=== PATIENT | male | born 1935 | race Caucasian/White ===

== ENCOUNTER → 2016-12-04 | Outpatient (CLI) | payer MEDICARE ==
[~2016-12-04] MED LIST: AMLO10TA PO; ASPI325T PO; CARV3.12 PO; COLA100C2 PO; LISI10TA4 PO; MULTIVIT PO; NITR0.4S SL; OMEP20TA7 PO; PRAV20TA2 PO; TRAM50TA2 PO; VITA500T PO
== END ==
LOC: M LAB 15:38
PROVIDERS: ATTEND Nurse Practitioner Adult Health
DX: R35.1 Nocturia (principal)

== ENCOUNTER → 2016-12-04 | Outpatient (CLI) | payer MEDICARE ==
[2016-12-04 18:01] LABS: ALBUMIN 3.6 GM/DL (3.2-5.2); ALKALINE PHOSPHATASE 73 U/L (45-117); ALT/SGPT 27 U/L (12-78); AST/SGOT 23 U/L (15-37); BILIRUBIN,DIRECT < 0.1 MG/DL (0.0-0.2); BILIRUBIN,TOTAL 0.3 MG/DL (0.2-1.0); CHOLESTEROL LEVEL 166 MG/DL (<200); TOTAL PROTEIN 6.6 GM/DL (6.4-8.2); TRIGLYCERIDES LEVEL 188 MG/DL (<150)
== END ==
LOC: M LAB 15:34
PROVIDERS: ATTEND Physician Assistant
DX: E78.00 Pure hypercholesterolemia, unspecified (principal); R35.1 Nocturia

== ENCOUNTER → 2016-12-17 | Outpatient (CLI) | payer MEDICARE ==
--- NOTE | 2016-12-17 08:16 | REP ---
Clinical: Right upper quadrant abdominal pain. Technique: Nice scale ultrasound using curved array transducer. Findings: The liver and pancreas are normal in contour, size, and echogenicity without focal hepatic or pancreatic lesions identified. The gallbladder demonstrates multiple small mobile gallstones without wall thickening or pericholecystic fluid. No biliary ductal dilatation is appreciated, and the common bile duct measures 5.5 mm diameter. The right kidney is normal in reniform shape without hydronephrosis. No ascites. Visualized portions of the abdominal aorta normal. Impression: 1. Cholelithiasis. Signed by Karlo Vieyra MD 12/17/2016 08:07 A
== END ==
LOC: M RAD 06:45
PROVIDERS: ATTEND Physician Assistant
DX: R10.9 Unspecified abdominal pain (principal)

== ENCOUNTER → 2017-06-15 | Outpatient (REF) | payer MEDICARE | LOC: M LAB REF 16:35 | PROVIDERS: ATTEND Physician Assistant | DX: N39.0 Urinary tract infection, site not specified (principal) ==

== ENCOUNTER → 2017-06-26 | Outpatient (CLI) | payer MEDICARE | LOC: M LAB 18:09 | PROVIDERS: ATTEND Physician Assistant | DX: R30.0 Dysuria (principal) | CPT/HCPCS: 36415; 81001; 87086; G0103 ==

== ENCOUNTER → 2017-07-17 | Outpatient (REF) | payer MEDICARE ==
[2017-07-17 13:50] LABS: FERRITIN 175 NG/ML (26-388); FOLATE > 24.0 NG/ML; PERCENT SATURATION 23.1 % (19.7-50.0); TOTAL IRON BINDING CAPACITY 312 UG/DL (250-450); VITAMIN B12 LEVEL 1111 PG/ML
== END ==
LOC: M LAB REF 13:03
PROVIDERS: ATTEND Internal Medicine Nephrology
DX: D64.9 Anemia, unspecified (principal)

== ENCOUNTER → 2017-09-02 | Outpatient (REF) | payer MEDICARE ==
[2017-09-02 14:09] LABS: CONTROL LINE HPYORI INT CTR LINE PRESENT; H PYLORI QUALITATIVE IgG NEGATIVE (NEGATIVE)
[2017-09-02 18:16] LABS: CREATININE FOR GFR 1.56 MG/DL (0.70-1.30); GLOMERULAR FILTRATION RATE 45.7 (>35)
[2017-09-02 18:16] LABS: BLOOD UREA NITROGEN 32 MG/DL (7-18)
== END ==
LOC: M LAB REF 12:09
DX: R10.9 Unspecified abdominal pain (principal)
CPT/HCPCS: 82565

== ENCOUNTER → 2017-12-07 | Outpatient (CLI) | payer MEDICARE ==
[2017-12-07 09:38] LABS: PROSTATIC SPECIFIC AG MONITOR < 0.01 NG/ML (< 4.0)
== END ==
LOC: M LAB 08:38
DX: R35.1 Nocturia (principal)
CPT/HCPCS: 84153

== ENCOUNTER → 2018-02-15 | Outpatient (CLI) | payer MEDICARE ==
[2018-02-15 08:23] LABS: PROTHROMBIN TIME 13.3 SECONDS (12.1-14.4)
[2018-02-15 08:24] LABS: PARTIAL THROMBOPLASTIN TIME 35.3 SECONDS (25.4-37.6)
[2018-02-15 08:32] LABS: BASO % 0.5 % (0.0-1.0); EOS # 0.3 10^3/uL (0.0-0.50); EOS % 3.6 % (0.0-3.0); HEMATOCRIT 40.2 % (42.0-52.0); HEMOGLOBIN 13.7 g/dl (13.5-17.5); IMMATURE GRANULOCYTE % 0.3 % (0-3.0); LYMPH # 0.6 10^3/uL (1.5-4.5); LYMPH % 7.8 % (24.0-44.0); MEAN CORPUSCULAR HEMOGLOBIN 32.5 pg (27.0-33.0); MEAN CORPUSCULAR HGB CONC 34.1 g/dl (32.0-36.5); MEAN CORPUSCULAR VOLUME 95.5 fl (80.0-96.0); MONO # 0.7 10^3/uL (0.0-0.8); MONO % 9.5 % (0.0-5.0); NEUTROPHILS # 5.7 10^3/uL (1.8-7.7); NEUTROPHILS % 78.3 % (36.0-66.0); PLATELET COUNT, AUTOMATED 217 10^3/uL (150-450); RED BLOOD COUNT 4.21 10^6/uL (4.30-6.10); RED CELL DISTRIBUTION WIDTH 12.2 % (11.5-14.5); RETIC HEMOGLOBIN EQUIVALENT 37.9 pg (24-36); RETICULOCYTE % 1.3 % (0.5-1.5); WHITE BLOOD COUNT 7.3 10^3/uL (4.0-10.0)
[2018-02-15 08:50] LABS: ALBUMIN 3.6 GM/DL (3.2-5.2); ALKALINE PHOSPHATASE 77 U/L (45-117); ALT/SGPT 29 U/L (12-78); ANION GAP 8 MEQ/L (8-16); AST/SGOT 23 U/L (7-37); BILIRUBIN,TOTAL 0.5 MG/DL (0.2-1.0); BLOOD UREA NITROGEN 29 MG/DL (7-18); CALCIUM LEVEL 9.2 MG/DL (8.8-10.2); CARBON DIOXIDE LEVEL 29 MEQ/L (21-32); CHLORIDE LEVEL 105 MEQ/L (98-107); CREATININE FOR GFR 1.68 MG/DL (0.70-1.30); GLUCOSE, FASTING 90 MG/DL (70-100); POTASSIUM SERUM 4.4 MEQ/L (3.5-5.1); SODIUM LEVEL 142 MEQ/L (136-145); TOTAL PROTEIN 7.2 GM/DL (6.4-8.2)
== END ==
LOC: M LAB 07:41
DX: I10 Essential (primary) hypertension (principal)
CPT/HCPCS: 80053

== ENCOUNTER 2018-02-23 09:33 | Day surgery (SDC) | payer MEDICARE ==
[~2018-02-23 09:33] MED LIST changes: -AMLO10TA PO; -ASPI325T PO; -CARV3.12 PO; -COLA100C2 PO; -LISI10TA4 PO; +LR 1,000 ML IV; -MULTIVIT PO; -NITR0.4S SL; -OMEP20TA7 PO; -PRAV20TA2 PO; -TRAM50TA2 PO; -VITA500T PO; +ceFAZolin SOD 1 GM in D5W MINI-BAG PLUS 50 ML IV
[2018-02-23] MEDS ORDERED: KETOROLAC 60 MG/2 ML VIAL (J1885) As Ordered (10:03)
[2018-02-23] MEDS ORDERED: PROPOFOL 200 MG/20 ML VIAL As Ordered (10:03)
[2018-02-23] MEDS ORDERED: ROCURONIUM BROMIDE 50 MG/5 ML VIAL As Ordered (10:03)
[2018-02-23] MEDS ORDERED: dexameTHASONE 4 MG/ML 1ML VIAL (J1100) As Ordered (10:03)
[2018-02-23] MEDS ORDERED: ONDANSETRON 4MG/2ML VIAL (J2405) As Ordered (10:03)
[2018-02-23] MEDS ORDERED: LIDOCAINE 2% INJ 100 MG/5 ML SDV (FOR ANES.) As Ordered (10:03)
[2018-02-23] MEDS ORDERED: fentaNYL 250 MCG/5 ML INJECTION (J3010) As Ordered (10:06)
[2018-02-23] MEDS ORDERED: MIDAZOLAM INJ 2 MG/2 ML VIAL (J2250) As Ordered (10:06)
[2018-02-23] MEDS ORDERED: CONRAY-60 60% 50ML VIAL (Q9961) As Ordered (10:10)
[2018-02-23] MEDS: LevoFLOXacin IV 500 MG in APPROPRIATE DILUENT 1 EA IV (10:15)
[2018-02-23] MEDS: BUPIVACAINE/EPIN 0.25% 30 ML VIAL As Ordered (11:10)
[2018-02-23] MEDS ORDERED: VASOPRESSIN INJ 20 UNITS/ML VIAL As Ordered (11:17)
[2018-02-23] MEDS ORDERED: SUGAMMADEX SODIUM 500 MG/5 ML VIAL (BRIDION) As Ordered (11:20)
[2018-02-23] MEDS ORDERED: ONDANSETRON 4MG/2ML VIAL (J2405) IV (12:30)
[2018-02-23] MEDS ORDERED: fentaNYL 100 MCG/2 ML INJECTION (J3010) IV (12:30)
[2018-02-23] MEDS ORDERED: LR 1,000 ML IV ×2 (12:30)
[2018-02-23] MEDS ORDERED: MORPHINE 4 MG/ML 1ML VIAL/SYRINGE (J2270) IV (12:30)
[2018-02-23] MEDS ORDERED: NORCO, ANEXSIA 5/325MG TABLET (HYDROcodone/ACETAMINOPHEN) PO (12:30)
[2018-02-23] MEDS: PERCOCET 5MG/325MG TAB PO ×2 (12:41→13:37)
[2018-02-23] MEDS ORDERED: PERCOCET 5MG/325MG TAB As Ordered (13:33)
[2018-02-23] MEDS: ONDANSETRON 4MG/2ML VIAL (J2405) IV (13:37)
[2018-02-23] MEDS: METOCLOPRAMIDE INJ 10MG/2ML VIAL (J2765) IV (14:30)
== END 2018-02-23 16:25 | disposition home or self-care (01) ==
LOC: M SDC 09:33
DX: K81.1 Chronic cholecystitis (principal); I10 Essential (primary) hypertension; E78.5 Hyperlipidemia, unspecified; Z87.891 Personal history of nicotine dependence; Z91.040 Latex allergy status; Z88.8 Allergy status to other drugs, medicaments and biological substances; Z79.899 Other long term (current) drug therapy; Z98.61 Coronary angioplasty status; K21.9 Gastro-esophageal reflux disease without esophagitis; Z85.46 Personal history of malignant neoplasm of prostate
CPT/HCPCS: 47562

== ENCOUNTER → 2018-06-03 | Outpatient (REF) | payer MEDICARE ==
[2018-06-03 14:23] LABS: APPEARANCE, URINE CLEAR (CLEAR); BACTERIA, URINE AUTO NEGATIVE (NEGATIVE); BILIRUBIN, URINE AUTO NEGATIVE (NEGATIVE); BLOOD, URINE BLOOD NEGATIVE (NEGATIVE); COLOR, URINE STRAW (YELLOW); GLUCOSE, URINE (UA) AUTO NEGATIVE (NEGATIVE); KETONE, URINE AUTO NEGATIVE (NEGATIVE); LEUKOCYTE ESTERASE, URINE AUTO NEGATIVE (NEGATIVE); NITRITE, URINE AUTO NEGATIVE (NEGATIVE); PROTEIN, URINE AUTO NEGATIVE (NEGATIVE); RBC, URINE AUTO 0 /HPF (0-3); SPECIFIC GRAVITY URINE AUTO 1.008 (1.002-1.035); SQUAMOUS EPITHELIAL CELL UR AU 0 /HPF (0-6); UROBILINOGEN, URINE AUTO 0.2 mg/dL (0.0-2.0); WBC, URINE AUTO 0 /HPF (0-3)
== END ==
LOC: M LAB REF 13:22
DX: N39.0 Urinary tract infection, site not specified (principal)
CPT/HCPCS: 81001

== ENCOUNTER → 2018-07-28 | Outpatient (REF) | payer MEDICARE ==
[~2018-07-28] MED LIST changes: +AMLO10TA PO; +ASPI325T PO; +CAPT125TA PO; +CARV3.12 PO; +CHLO25TA PO; +COLA100C2 PO; +LISI10TA4 PO; -LR 1,000 ML IV; +MULTIVIT PO; +NITR0.4S SL; +OMEP20TA7 PO; +PRAV20TA2 PO; +TRAM50TA2 PO; +VITA100067 PO; +VITA500T PO; -ceFAZolin SOD 1 GM in D5W MINI-BAG PLUS 50 ML IV
[2018-07-28 19:43] LABS: BASO % 0.5 % (0.0-1.0); EOS # 0.2 10^3/uL (0.0-0.50); EOS % 3.1 % (0.0-3.0); HEMOGLOBIN 12.9 g/dl (13.5-17.5); LYMPH # 0.5 10^3/uL (1.5-4.5); LYMPH % 7.8 % (24.0-44.0); MEAN CORPUSCULAR HEMOGLOBIN 31.9 pg (27.0-33.0); MEAN CORPUSCULAR HGB CONC 33.9 g/dl (32.0-36.5); MEAN CORPUSCULAR VOLUME 94.1 fl (80.0-96.0); MONO # 0.6 10^3/uL (0.0-0.8); MONO % 8.9 % (0.0-5.0); NEUTROPHILS # 5.1 10^3/uL (1.8-7.7); NEUTROPHILS % 79.2 % (36.0-66.0); PLATELET COUNT, AUTOMATED 222 10^3/uL (150-450); RED BLOOD COUNT 4.04 10^6/uL (4.30-6.10); WHITE BLOOD COUNT 6.4 10^3/uL (4.0-10.0)
[2018-07-28 20:07] LABS: ALBUMIN 3.6 GM/DL (3.2-5.2); BILIRUBIN,TOTAL 0.5 MG/DL (0.2-1.0); CALCIUM LEVEL 8.6 MG/DL (8.8-10.2); CREATININE FOR GFR 1.46 MG/DL (0.70-1.30); GLOMERULAR FILTRATION RATE 49.3 (>35); POTASSIUM SERUM 4.3 MEQ/L (3.5-5.1); TOTAL PROTEIN 6.7 GM/DL (6.4-8.2)
== END ==
LOC: M LABDRWAD 19:19
PROVIDERS: ATTEND Physician Assistant Medical
DX: R10.9 Unspecified abdominal pain (principal)

== ENCOUNTER → 2018-07-29 | Outpatient (REF) | payer MEDICARE | LOC: M LAB REF 09:24 | PROVIDERS: ATTEND Physician Assistant Medical | DX: R19.7 Diarrhea, unspecified (principal) ==

== ENCOUNTER → 2018-08-03 | Outpatient (CLI) | payer MEDICARE ==
[2018-08-03 07:57] LABS: ALBUMIN 3.5 GM/DL (3.2-5.2); BILIRUBIN,TOTAL 0.3 MG/DL (0.2-1.0); CALCIUM LEVEL 8.9 MG/DL (8.8-10.2); CREATININE FOR GFR 1.45 MG/DL (0.70-1.30); GLOMERULAR FILTRATION RATE 49.6 (>35); POTASSIUM SERUM 4.2 MEQ/L (3.5-5.1); TOTAL PROTEIN 6.3 GM/DL (6.4-8.2)
== END ==
LOC: M LAB 07:06
PROVIDERS: ATTEND Physician Assistant
DX: I25.10 Atherosclerotic heart disease of native coronary artery without angina pectoris (principal); E78.00 Pure hypercholesterolemia, unspecified; I11.9 Hypertensive heart disease without heart failure

== ENCOUNTER 2018-09-11 12:28 | Emergency (ER) | payer MEDICARE ==
[~2018-09-11] VITALS: Ht 172.7 cm; Wt 75.0 kg
[2018-09-11] MEDS ORDERED: LISI-542 PO (12:38)
[2018-09-11] MEDS ORDERED: RANI300T PO (12:38)
[2018-09-11] MEDS ORDERED: AMOX875T PO (12:38)
--- NOTE | 2018-09-11 13:58 | REP ---
CT BRAIN WITHOUT CONTRAST: 09/11/2018. COMPARISON: 07/18/2009 CLINICAL HISTORY: Trauma. FINDINGS: Soft tissue and bone windows are reviewed for each slice level. Lateral ventricles are midline, symmetric, and dilated. This is progressive change since the 2008 study with increasing ventricular size. Third and fourth ventricles are prominent and proportionate to these lateral ventricles. There is extensive cortical atrophy and this is proportionate to the degree of ventriculomegaly. Basal ganglia are symmetric and grossly intact. 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 There is no vascular territory infarct, intracranial hemorrhage, mass, mass effect, or extra-axial fluid collection. Brainstem intact. Cerebellum shows atrophy without mass or posterior fossa bleed. The basal cisterns are intact. The mastoids and internal auditory canals are unremarkable. There is opacification of the left sphenoid sinus. The right sphenoid and the ethmoids, upper aspects of maxillary, and diminutive frontal sinuses are clear. No fracture calvarium or skull base or focal lesion. IMPRESSION: 1. Progressive atrophy and ventriculomegaly in proportion since the 2008 study. However, there is no acute infarct, intracranial hemorrhage, mass, or mass effect. 2. No fracture skull base or calvarium. 3. 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 Electronically Signed by Yony Mata MD 09/11/2018 07:51 P
--- NOTE | 2018-09-11 14:00 | REP ---
CT CERVICAL SPINE WITHOUT CONTRAST: 09/11/2018. CLINICAL HISTORY: Trauma. COMPARISON: 07/18/2009 FINDINGS: Standard techniques were utilized with coronal and sagittal bone window reconstructions. There is slight reversal of the normal cervical lordosis centered at C5, similar to the previous study. Cervical spondylosis seen at all levels from C2-3 through C6-7. Posterior osteophytes at all of these levels, sparing C7-T1. No compression deformity or destructive lesion. The dens shows some degenerative changes without fracture. There is narrowing of the dens interval with the anterior arch of C1 dens, and a normal relationship to the lateral masses of C1. Mild central canal stenosis at C3-4 and C4-5 levels. Deviation of the lower cervical trachea toward the right and apical pleural thickening on that right side. This is not present on the study 10 years ago. IMPRESSION: 1. There is no compression fracture, prevertebral swelling, or malalignment. 2. Posterior osteophytes C3-4 through C6-7 with borderline central canal at several levels but no significant or tight stenosis. 3. Degenerative changes at the C1-2 level without acute finding. Electronically Signed by Yony Mata MD 09/11/2018 07:51 P
[2018-09-11] MEDS ORDERED: VOLT1GEL15 TOP (14:24)
[2018-09-11 14:32] VITALS: BP 166/77
== END 2018-09-11 14:37 | disposition home or self-care (01) ==
LOC: M ED 12:28
DX: S16.1XXA Strain of muscle, fascia and tendon at neck level, initial encounter (principal); S00.03XA Contusion of scalp, initial encounter; W00.9XXA Unspecified fall due to ice and snow, initial encounter; Y92.099 Unspecified place in other non-institutional residence as the place of occurrence of the external cause; Y93.9 Activity, unspecified; Y99.9 Unspecified external cause status; M50.31 Other cervical disc degeneration, high cervical region; M25.78 Osteophyte, vertebrae; J34.89 Other specified disorders of nose and nasal sinuses; I10 Essential (primary) hypertension; Z95.2 Presence of prosthetic heart valve; Z87.891 Personal history of nicotine dependence; Z79.82 Long term (current) use of aspirin; Z79.899 Other long term (current) drug therapy; Z88.8 Allergy status to other drugs, medicaments and biological substances; Z88.1 Allergy status to other antibiotic agents; Z91.040 Latex allergy status

== ENCOUNTER → 2018-11-24 | Outpatient (REF) | payer MEDICARE ==
[~2018-11-24] MED LIST changes: +AMOX875T PO; +LISI-542 PO; +RANI300T PO; +VOLT1GEL15 TOP
[2018-11-24 12:18] LABS: APPEARANCE, URINE CLEAR (CLEAR); BACTERIA, URINE AUTO NEGATIVE (NEGATIVE); BILIRUBIN, URINE AUTO NEGATIVE (NEGATIVE); BLOOD, URINE BLOOD NEGATIVE (NEGATIVE); COLOR, URINE STRAW (YELLOW); GLUCOSE, URINE (UA) AUTO NEGATIVE (NEGATIVE); KETONE, URINE AUTO NEGATIVE (NEGATIVE); LEUKOCYTE ESTERASE, URINE AUTO NEGATIVE (NEGATIVE); NITRITE, URINE AUTO NEGATIVE (NEGATIVE); PROTEIN, URINE AUTO NEGATIVE (NEGATIVE); RBC, URINE AUTO 0 /HPF (0-3); SPECIFIC GRAVITY URINE AUTO 1.006 (1.002-1.035); SQUAMOUS EPITHELIAL CELL UR AU 0 /HPF (0-6); UROBILINOGEN, URINE AUTO 0.2 mg/dL (0.0-2.0); WBC, URINE AUTO 0 /HPF (0-3)
== END ==
LOC: M LAB REF 11:44
PROVIDERS: ATTEND Physician Assistant
DX: N39.0 Urinary tract infection, site not specified (principal)

== ENCOUNTER → 2018-12-06 | Outpatient (CLI) | payer MEDICARE | LOC: M LAB 07:13 | PROVIDERS: ATTEND Nurse Practitioner Adult Health | DX: Z85.46 Personal history of malignant neoplasm of prostate (principal) ==

== ENCOUNTER → 2019-02-25 | Outpatient (REF) | payer MEDICARE ==
[2019-02-25 19:59] LABS: CALCIUM LEVEL 8.7 MG/DL (8.8-10.2); CREATININE FOR GFR 1.72 MG/DL (0.70-1.30); GLOMERULAR FILTRATION RATE 40.7 (>35); POTASSIUM SERUM 4.2 MEQ/L (3.5-5.1)
== END ==
LOC: M LABDRWAD 19:14
PROVIDERS: ATTEND Physician Assistant
DX: I11.9 Hypertensive heart disease without heart failure (principal)

== ENCOUNTER → 2019-05-12 | Outpatient (REF) | payer MEDICARE | LOC: M LAB REF 16:38 | PROVIDERS: ATTEND Physician Assistant | DX: R30.0 Dysuria (principal) ==